=== PATIENT | male | born 1990 | race Caucasian/White ===

== ENCOUNTER 2021-09-19 18:03 | Outpatient (CLI) | payer BC | END 2021-09-19 18:04 | disposition home or self-care (01) | LOC: CSHLAB 18:03 | PROVIDERS: ATTEND Internal Medicine Gastroenterology | DX: Z20.822 Contact with and (suspected) exposure to COVID-19 (principal) | CPT/HCPCS: 87811 ==

== ENCOUNTER 2021-09-22 08:08 | Outpatient (CLI) | payer BC ==
[2021-09-20 15:53] VITALS: BMI 20.7
[2021-09-22] MEDS ORDERED: Fentanyl 100 MCG/2 ML VIAL ONE (09:34)
[2021-09-22] MEDS ORDERED: PROPOFOL 20 ML ONE ×2 (09:34→10:00)
[2021-09-22] MEDS ORDERED: Lidocaine 1% PF 5 ML VIAL ONE (09:35)
== END 2021-09-22 08:09 | disposition home or self-care (01) ==
LOC: CSHULT 08:08
PROVIDERS: ATTEND Internal Medicine Gastroenterology
DX: R10.9 Unspecified abdominal pain (principal); K30 Functional dyspepsia; K82.4 Cholesterolosis of gallbladder; Q63.1 Lobulated, fused and horseshoe kidney
CPT/HCPCS: 76700; J2704; J3010

== ENCOUNTER 2021-09-22 09:12 | Day surgery (SDC) | payer BC | END 2021-09-22 10:45 | disposition home or self-care (01) | LOC: CSHSDC 09:12 | PROVIDERS: ATTEND Internal Medicine Gastroenterology | PROC: 0DB98ZX Excision of Duodenum, Via Natural or Artificial Opening Endoscopic, Diagnostic (ICD-10-PCS; principal; 2021-09-22) | DX: K31.89 Other diseases of stomach and duodenum (principal); K44.9 Diaphragmatic hernia without obstruction or gangrene; D72.820 Lymphocytosis (symptomatic); R13.10 Dysphagia, unspecified; R19.7 Diarrhea, unspecified; R11.2 Nausea with vomiting, unspecified; Z20.822 Contact with and (suspected) exposure to COVID-19; R10.9 Unspecified abdominal pain; K30 Functional dyspepsia; K82.4 Cholesterolosis of gallbladder; Q63.1 Lobulated, fused and horseshoe kidney | CPT/HCPCS: 76700; 88305; J2704; J3010 ==